=== PATIENT | male | born 1955 | race Caucasian/White ===

== ENCOUNTER 2016-12-14 13:39 | Emergency (ER) | payer OTHER ==
[~2016-12-14] VITALS: Ht 182.9 cm; Wt 90.7 kg
[~2016-12-14 13:39] MED LIST: BACTRIM DS TAB1 EACH PO; CEPHALEXIN500 MG PO; NASAL DECONGEST30 M2 PO
--- NOTE | 2016-12-14 16:22 | EKG ---
[facility] [address] [place] [address] Signed Normal sinus rhythm Normal ECG No previous ECGs available Confirmed by SAHRON BRAUN MD ([id number] on 12/14/2016 4:22:07 PM Electronically Signed By: SHARON BRAUN MD 12/14/16 1622 PATIENT NAME: MAGNOLIA GREEN BREONNA Electrocardiogram DATE OF : 59 PHYSICIAN: SHARON BRAUN MD REPORT #: [id number] REPORT IS CONFIDENTIAL AND NOT TO BE RELEASED WITHOUT AUTHORIZATION
== END 2016-12-14 15:11 | disposition home or self-care (01) ==
LOC: ED 13:39
DX: R55 Syncope and collapse (principal); I10 Essential (primary) hypertension
CPT/HCPCS: 80053; 84484; 85025; 93005; 93010; 96361; 96374; 99283; J2405; J7030